=== PATIENT | male | born 1975 | race Caucasian/White ===

== ENCOUNTER 2022-09-22 18:01 | Emergency (ER) | payer SELFPAY ==
[~2022-09-22] VITALS: Ht 182.9 cm; Wt 88.5 kg
== END 2022-09-22 18:14 | disposition home or self-care (01) ==
LOC: ER 18:01
DX: I83.91 Asymptomatic varicose veins of right lower extremity (principal); F17.200 Nicotine dependence, unspecified, uncomplicated
CPT/HCPCS: 99282